=== PATIENT | male | born 1960 | race Caucasian/White ===

== ENCOUNTER → 2025-01-03 10:47 | Outpatient (REF) | payer OTHER, SELFPAY | LOC: RAD 10:47 | PROVIDERS: ATTENDING PHYSICIAN Registered Nurse | DX: R10.11 Right upper quadrant pain (principal) | CPT/HCPCS: 74177; Q9967 ==

== ENCOUNTER → 2025-01-17 13:23 | Outpatient (REF) | payer OTHER, SELFPAY | LOC: RAD 13:23 | PROVIDERS: ATTENDING PHYSICIAN Registered Nurse | DX: R50.9 Fever, unspecified (principal); R10.11 Right upper quadrant pain | CPT/HCPCS: 71046 ==

== ENCOUNTER → 2025-01-17 15:47 | Outpatient (REF) | payer OTHER, SELFPAY | LOC: RAD 15:47 | PROVIDERS: ATTENDING PHYSICIAN Registered Nurse | DX: R50.9 Fever, unspecified (principal); R10.11 Right upper quadrant pain | CPT/HCPCS: 76700 ==